=== PATIENT | male | born 1995 | race Caucasian/White ===

== ENCOUNTER 2019-08-23 21:06 | Emergency (ER) | payer OTHER ==
[~2019-08-23] VITALS: Ht 180.3 cm; Wt 136.0 kg
[2019-08-23 21:10] VITALS: BP 161/101
--- NOTE | 2019-08-23 21:19 | NUR ---
C/O LT CHEEK PAIN. STARTED W/ DENTAL PAIN APPROX 6 HRS AGO. NO PAIN MEDS TAKEN. DENIES RECENT URI. LAST DENTAL CHECK-UP "ABOUT A YEAR AGO".
--- NOTE | 2019-08-23 21:22 | NUR ---
NASAL CONGESTION NOTED. PT ADMITS "GETTING OVER BEING SICK" - SORE THROAT, NASAL CONGESTION.
[2019-08-23] MEDS ORDERED: LIDOCAINE-MPF 1%, 5ML INFIL ONE (22:00)
[2019-08-23] MEDS ORDERED: BUPIVACAINE 0.25% INFIL ONE (22:00)
[2019-08-23] MEDS ORDERED: LIDOCAINE-MPF 1%, 5ML ONE (22:06)
[2019-08-23] MEDS ORDERED: BUPIVACAINE 0.25% ONE (22:07)
== END 2019-08-23 22:41 | disposition home or self-care (01) ==
LOC: ED 22:05
DX: K04.7 Periapical abscess without sinus (principal); R51 Headache; Z72.9 Problem related to lifestyle, unspecified; Z75.9 Unspecified problem related to medical facilities and other health care; Z91.14 Patient's other noncompliance with medication regimen
CPT/HCPCS: 41800; 99283